=== PATIENT | male | born 1950 | race Caucasian/White ===

== ENCOUNTER → 2016-07-28 | Outpatient (CLI) | payer BC, OTHER ==
[~2016-07-28] MED LIST: ATOR-22 PO; KETO10TA PO; MONT1TAB3 PO; OXYC-57 PO; RIZA10TA18 PO; TADA5TAB11 PO
[2016-07-28 15:40] LABS: BASO % 0.3 %; BASO ABS # 0.02 K/uL (0-0.2); COMPLETE YES; EOS % 0.9 %; HEMATOCRIT 43.6 % (42-52); IG% 0.2 %; LYMPH % 21.6 %; LYMPH ABS # 1.24 K/uL (1.2-3.4); MEAN CELL VOLUME 91.6 fL (80-100); MEAN CORPUSCULAR HEMOGLOBIN 30.3 pg (25-34); MEAN PLATELET VOLUME 9.4 fL (7.4-10.4); MONO % 6.6 %; NEUT % 70.4 %; PLATELET COUNT 201 K/uL (130-400); RED BLOOD COUNT 4.76 M/uL (4.7-6.1); WHITE BLOOD COUNT 5.75 K/uL (4.8-10.8)
[2016-07-28 15:57] LABS: POTASSIUM 4.3 mmol/L (3.5-5.1)
== END | disposition home or self-care (01) ==
LOC: C.CPL 14:59
PROVIDERS: ATTEND Orthopaedic Surgery Sports Medicine
DX: M67.919 Unspecified disorder of synovium and tendon, unspecified shoulder (principal); Z01.810 Encounter for preprocedural cardiovascular examination; Z01.812 Encounter for preprocedural laboratory examination

== ENCOUNTER → 2016-08-03 | Day surgery (SDC) | payer BC, OTHER ==
[2016-07-29 10:56] VITALS: Ht 167.6 cm; Wt 77.3 kg
[~2016-08-03] VITALS: Ht 167.6 cm; Wt 77.3 kg
[~2016-08-03] MED LIST changes: +ATROPINE SULFATE 0.1 MG/ML 5ML SYR IV PRN; +BUPIVACAINE/EPINEPHRINE 0.5% MPF 1:200,000 30 ML VIAL ONE; +CEFAZOLIN 1000MG/55 ML D5W IV SCH; +CEFAZOLIN 2000 MG/60 ML D5W IV SCH; +CEFAZOLIN SOD 1 GM VIAL ONE; +CEFAZOLIN SOD 1000MG/55 ML D5W IV ONE; +DEXAMETHASONE SOD INJ 4 MG/ML VIAL ONE; +EpHEDrine SULFATE 50MG/5ML SYR ONE; +EpHEDrine SULFATE INJ 50 MG/ML AMP IV PRN; +FENTANYL CITRATE INJ 50 MCG/1 ML 2 ML VIAL IV PRN; +FENTANYL CITRATE INJ 50 MCG/1 ML 2 ML VIAL ONE; +KETOROLAC TROMETHAMINE 30 MG/ML VIAL ONE; +LACTATED RINGER'S 1000ML 1,000 ML IV SCH; +LIDOCAINE HCL 2% 2 ML VIAL (20MG/ML) ONE; +MIDAZOLAM HCL 1 MG/ML 2ML VIAL ONE; +ONDANSETRON INJ 2 MG/ML 2 ML VIAL ONE; +OXYCODONE/ACETAMINOPHEN 5-325 TAB PO PRN; +PROPOFOL IV EMULSION 10 MG/ML 20 ML VIAL IV ONE; -RIZA10TA18 PO; +SODIUM CHLORIDE 0.9% 1000ML 1,000 ML IV SCH
--- NOTE | 2016-08-03 08:15 | History & Physical Bridge - [place] ---
H&P Re-Evaluation Bridge Note: I have examined the patient, reviewed the History & Physical and in the interval since the performance of the History & Physical I have noted the following changes of clinical significance: No changes noted
--- NOTE | 2016-08-03 10:58 | [facility] Post Operative Brief Note ---
Immediate Operative Summary Operative Date Aug 03, 2016. Pre-Operative Diagnosis Right Distal Biceps Rupture Post-Operative Diagnosis Same Procedure(s) Performed Right Distal Biceps Repair Surgeon Dr. Stephen Speech Pathology Assistant Surgeon(s) Hector Monahan PA-C Estimated Blood Loss 20 ML Findings Right Distal Biceps Rupture Specimens None Anesthesia General Complication(s) None Disposition Recovery Room / PACU
--- NOTE | 2016-08-03 11:00 | Discharge Instructions-SurgCtr ---
Discharge Instructions Date of Service Aug 03, 2016. Visit Reason for Visit: Right Distal Tendon Biceps Brachii Tear Discharge Discharge Diagnosis / Problem: right distal bicep tendon rupture Discharge Goals Goal(s): Improve function, Therapeutic intervention Activity Recommendations Activity Limitations: per Instructions/Follow-up section Anesthesia . Post Anesthesia Instructions: If you have had General Anesthesia or IV Sedation: * Do not drive today. * Resume driving when surgeon permits. * Do not make important decisions or sign legal documents today. * Call surgeon for: 1. Temperature elevations greater than 101 degrees F. 2. Uncontrollable pain. 3. Excessive bleeding. 4. Persistent nausea and vomiting. 5. Medication intolerance (nausea, vomiting or rash). * For nausea and vomiting use only clear liquids such as: tea, soda, bouillon until nausea subsides, then gradually increase diet as tolerated. * If you have any concerns or questions, call your surgeon's office. If physician is unavailable and it is an emergency, call 911 or go to the nearest emergency room. . Instructions / Follow-Up Instructions / Follow-Up MEDICATIONS: * Resume previous medications unless instructed otherwise by your surgeon. * Always take pain medication on a full stomach or with food to avoid upset stomach. * Do not drink alcohol or drive while taking narcotics. * Ibuprofen or Tylenol may be taken if narcotic not needed. No ibuprofen while taking toradol SPECIAL CARE INSTRUCTIONS: __ None _x_ Keep extremity elevated and iced x 48 hours; apply ice 20-30 minutes 8-10 times/day. May remove at night. _x_ Sling __24 hrs/day __ Remove at night __ Shoulder Immobilizer __ 24 hrs/day __ Remove at night _x_ Dressing _x_ Maintain until seen in office, may shower with plastic over site __ Remove dressings in 24-48 hours and then may shower __ Cover incisions with band-aids after showering __ Do not remove steri-strips Call physician if chills or temperature rises above 102 degrees or pain unrelieved by prescribed pain medications at . follow up in 2 weeks . Diet Recommendations Home Diet: resume previous diet Procedures Procedures Performed: Right Distal Biceps Repair Pending Studies Studies pending at discharge: no Medical Emergencies . Who to Call and When: Medical Emergencies: If at any time you feel your situation is an emergency, please call 911 immediately. . Non-Emergent Contact Non-Emergency issues call your: Surgeon . . "Provider Documentation" section prepared by Sha Monahan. .
[2016-08-03 12:04] VITALS: TEMP 36.6
[2016-08-03 12:28] VITALS: BP 124/77; PULSE 81; O2SAT 95
--- NOTE | 2016-08-03 12:31 | Anesthesia Progress Nt - [facility] ---
Anesthesia Post Op Note Date & Time Aug 03, 2016 at 12:31 Vital Signs Pain Intensity: 4 Vital Signs Past 12 Hours Date Time Temp Pulse Resp B/P (MAP) Pulse Ox O2 Delivery O2 Flow Rate FiO2 08/03/16 12:28 81 16 124/77 (93) 95 Room Air 08/03/16 12:04 36.6 83 16 133/81 (98) 97 Room Air 08/03/16 11:42 142/85 08/03/16 11:39 89 10 96 08/03/16 11:39 87 10 08/03/16 11:37 146/84 08/03/16 11:35 36.1 89 16 146/84 96 Room Air 08/03/16 11:34 85 9 97 08/03/16 11:34 86 9 08/03/16 11:32 149/80 08/03/16 11:29 80 6 96 08/03/16 11:29 82 6 08/03/16 11:27 149/88 08/03/16 11:24 86 13 08/03/16 11:24 86 13 100 08/03/16 11:22 147/83 08/03/16 11:19 87 14 100 08/03/16 11:19 87 14 08/03/16 11:18 85 12 08/03/16 11:18 85 12 100 08/03/16 11:17 141/82 08/03/16 11:13 84 12 100 08/03/16 11:13 84 12 08/03/16 11:12 136/83 08/03/16 11:08 85 14 100 08/03/16 11:08 87 14 08/03/16 11:07 145/84 08/03/16 11:03 90 14 08/03/16 11:03 90 14 100 08/03/16 11:02 142/81 08/03/16 10:58 82 13 98 08/03/16 10:58 84 13 08/03/16 10:57 132/75 08/03/16 10:56 36.4 85 14 142/81 100 Mask 6 08/03/16 07:55 36.6 66 16 134/95 (108) 99 Room Air Notes Mental Status: alert / awake / arousable, participated in evaluation Pt Amnestic to Procedure: Yes Nausea / Vomiting: adequately controlled Pain: adequately controlled Airway Patency, RR, SpO2: stable & adequate BP & HR: stable & adequate Hydration State: stable & adequate Anesthetic Complications: no major complications apparent
--- NOTE | 2016-08-03 21:40 | OPERATIVE REPORT ---
DATE OF OPERATION: 08/03/2016 SURGEON: Dr. Pro Stephen. FINISHING TECHNICIAN: NUVIA Saini. PREOPERATIVE DIAGNOSIS: Right distal biceps rupture. POSTOPERATIVE DIAGNOSIS: Same. PROCEDURE PERFORMED: Right distal biceps repair. COMPLICATIONS: None. ESTIMATED BLOOD LOSS: 20 mL TOURNIQUET TIME: 38 minutes at 250 mmHg. ANESTHESIA: General. SPECIMENS: None. OPERATIVE INDICATIONS: The patient is a 66-year-old very active and healthy gentleman who injured his arm last week. He sustained eccentric contraction of his right biceps. He had an acute onset of pain and felt a snap in his arm. It was painful for a while and the pain went away. He was seen in clinic and diagnosed with an obvious distal biceps rupture. The patient elected to proceed with surgical treatment. He had no prodromal symptoms. OPERATIVE FINDINGS: Operative findings revealed complete distal biceps rupture. OPERATIVE PROCEDURE: The patient was taken to the operating room, identified and placed on the operating table in supine position. All contact areas were appropriately padded. IV antibiotics were provided by the anesthesia team. Right upper extremity tourniquet was placed on the upper arm. The right arm was then prepped and draped in the usual sterile fashion. The right arm was elevated and exsanguinated using an Esmarch and tourniquet was placed at 250 mmHg. A transverse incision was made in the antecubital fossa. Blunt dissection was carried out through the subcutaneous tissues. The fascia of the arm was opened up and a serosanguineous collection of fluid was immediately present. The biceps tendon was under direct visualization. I withdrew this from the wound. There was a little piece of bone in this, which was excised. I did freshen up the end of the biceps tendon and narrowed it so it would fit in the bone tunnel. I then tucked this back up into the arm for later repair. Great care was taken throughout the procedure to protect the lateral antebrachial cutaneous nerve. I used a Melanie clamp to track the path from the antecubital fossa to the posterior aspect of the forearm. The incision was marked. Attention was then turned to the posterior exposure. Keeping the arm in pronation at all times, a direct exposure to the biciptial tuberosity was then performed. This was thru a 4 cm incision. Sharp dissection was carried through the subcutaneous tissues down to the level of the fascia. The fascia of the forearm was then incised. I then split directly through the extensor muscle mass directly down to the bicipital tuberosity. I cleaned this of all soft tissues. Great care was taken throughout the procedure to protect the posterior interosseous nerve at all times. I then used a ozzie to create a hole in the bicipital tuberosity. I then irrigated this extensively. I then used a drill to create some holes from the lateral aspect of the radius into the intramedullary canal. I then placed some passing sutures to allow passage of the tendon. Attention was then drawn back to the biceps. The biceps tendon was then whipstitched with a #2 FiberWire suture. A #5 Ethibond suture was then placed in a [place] fashion through the tendon as well. These sutures were then passed through the antecubital fossa and around the radius to the posterior aspect of the arm into the posterior incision. I then used the passing sutures to pass these sutures through the intramedullary canal and out to the lateral aspect of the radius. We tucked the biceps tendon into the intramedullary canal. I then tied the sutures. This provided excellent anatomic repair. Attention was then drawn toward closing. Both wounds were irrigated extensively. I did inject locally with 30 mL of 0.5% Marcaine with epinephrine. The tourniquet was then let down for a tourniquet time of 38 minutes. Hemostasis was assured with use of electrocautery. There was a little bit more bleeding initially from the posterior wound, but we just packed this and proceeded with closure of the anterior wound. The anterior wound was then closed with 2-0 Dexon suture in buried interrupted fashion followed by 3-0 Prolene suture in a subcuticular fashion. The posterior wound was then opened back up. Hemostasis was assured with use of electrocautery. We irrigated the wound extensively to make sure all bone dust was out. The fascia was then closed with 2-0 Dexon suture in running fashion. The subcutaneous tissues were then closed with 2-0 Dexon suture in a buried interrupted fashion. Skin was closed with 3-0 Prolene suture in a subcuticular fashion. Both wounds were then cleaned and dried. Steri-Strips were applied. A sterile bandage composed of Xeroform, 4 x 4s, sterile cast padding and a well-padded posterior splint followed by a sling were applied. The patient was then brought out of general anesthesia and transferred to the recovery room in stable condition. The patient tolerated the procedure well with no complications. All needle and sponge counts were correct at the end of the operation. I attest to the content of the Intraoperative Record and any orders documented therein. Any exceptions are noted below. MTDD
== END | disposition home or self-care (01) ==
LOC: X.SURG 07:24
PROVIDERS: ATTEND Orthopaedic Surgery Sports Medicine
DX: S46.211A Strain of muscle, fascia and tendon of other parts of biceps, right arm, initial encounter (principal); E78.5 Hyperlipidemia, unspecified; X50.0XXA Overexertion from strenuous movement or load, initial encounter; Z87.442 Personal history of urinary calculi

== ENCOUNTER → 2016-11-16 | Outpatient (CLI) | payer BC, OTHER ==
[~2016-11-16] MED LIST changes: -ATROPINE SULFATE 0.1 MG/ML 5ML SYR IV PRN; -BUPIVACAINE/EPINEPHRINE 0.5% MPF 1:200,000 30 ML VIAL ONE; -CEFAZOLIN 1000MG/55 ML D5W IV SCH; -CEFAZOLIN 2000 MG/60 ML D5W IV SCH; -CEFAZOLIN SOD 1 GM VIAL ONE; -CEFAZOLIN SOD 1000MG/55 ML D5W IV ONE; -DEXAMETHASONE SOD INJ 4 MG/ML VIAL ONE; -EpHEDrine SULFATE 50MG/5ML SYR ONE; -EpHEDrine SULFATE INJ 50 MG/ML AMP IV PRN; -FENTANYL CITRATE INJ 50 MCG/1 ML 2 ML VIAL IV PRN; -FENTANYL CITRATE INJ 50 MCG/1 ML 2 ML VIAL ONE; -KETO10TA PO; -KETOROLAC TROMETHAMINE 30 MG/ML VIAL ONE; -LACTATED RINGER'S 1000ML 1,000 ML IV SCH; -LIDOCAINE HCL 2% 2 ML VIAL (20MG/ML) ONE; -MIDAZOLAM HCL 1 MG/ML 2ML VIAL ONE; -ONDANSETRON INJ 2 MG/ML 2 ML VIAL ONE; -OXYCODONE/ACETAMINOPHEN 5-325 TAB PO PRN; -PROPOFOL IV EMULSION 10 MG/ML 20 ML VIAL IV ONE; -SODIUM CHLORIDE 0.9% 1000ML 1,000 ML IV SCH
[2016-11-16 13:58] LABS: ALT/SGPT 28 U/L (12-78); BLOOD UREA NITROGEN 18 mg/dl (7-18); BUN/CREATININE RATIO 16.5 (10-20); CALCIUM 9.2 mg/dl (8.5-10.1); CARBON DIOXIDE 27 mmol/L (21-32); CHLORIDE 106 mmol/L (98-107); CHOLESTEROL 209 mg/dl (0-200); GLUCOSE 96 mg/dl (70-99); POTASSIUM 4.5 mmol/L (3.5-5.1); SODIUM 139 mmol/L (136-145); TRIGLYCERIDES 56 mg/dl (0-150); VERY LOW DENSITY LIPOPROT CALC 11 mg/dl
[2016-11-16 14:02] LABS: ALB/GLOB RATIO 1.5 (0.9-2); ALKALINE PHOSPHATASE 52 U/L (45-117); AST/SGOT 21 U/L (15-37); CHOLESTEROL/HDL RATIO 3.1; HDL CHOLESTEROL 67 mg/dl; LDL CHOLESTEROL CALCULATED 131 mg/dl
--- NOTE | 2016-11-30 08:38 | CODING QUERY MEDICAL NECESSITY ---
CQSUPPORTING DIAGNOSIS NEEDED A supporting diagnosis is required for the test/procedure performed on this patient in order for us to be reimbursed by the patient's insurance. Please provide a supporting diagnosis for the following test/procedure listed below next to the test name along with your signature. *If there is no additional diagnosis for this patient that would support the following test/procedure please document that below next to the test/procedure. Test(s)/Procedure(s) that require a supporting diagnosis: DOS 11/16/16 PROSTATE SPECIFIC TEST Provider Signature: Date: Thank you Diann Gamboa [employer] Once completed, please kindly fax back to [phone] For questions please call [phone]
== END | disposition home or self-care (01) ==
LOC: C.LABBC 09:12
PROVIDERS: ATTEND Internal Medicine
DX: Z00.00 Encounter for general adult medical examination without abnormal findings (principal)

== ENCOUNTER → 2017-01-25 | Day surgery (SDC) | payer BC, OTHER ==
[2017-01-17 07:36] VITALS: Ht 167.6 cm; Wt 77.3 kg
[~2017-01-25] VITALS: Ht 167.6 cm; Wt 77.3 kg
[~2017-01-25] MED LIST changes: +500ML BSS 0.3ML EPI 1:1000PF IRRIG ONE; +ACETAMINOPHEN 325 MG TAB PO PRN; +AMVISC PLUS 0.8ML SYRINGE INT OCU ONE; +ATROPINE SULFATE 0.1 MG/ML 5ML SYR IV PRN; +BSS FLUSH ONE; +ENDOCOAT 0.85ML SYRINGE INT OCU ONE; +EpINEphrine INJ 1MG/ML AMP 1 MG/ML AMP ONE; +FENTANYL CITRATE INJ 50 MCG/1 ML 2 ML VIAL ONE; +LACTATED RINGER'S 1000ML 500 ML IV SCH; +LIDOCAINE 4% OP SOLN DROP CHARGE ONE; +LIDOCAINE 4% OP SOLN DROP CHARGE OPL SCH; +LIDOCAINE HCL 1% MPF 2 ML VIAL ONE; +MIDAZOLAM HCL 1 MG/ML 2ML VIAL ONE; +MIX: 4ML BSS 1ML EPI 1:1000 PF TOP ONE; +MOXIFLOXACIN OPH SOLN PER DROP CHARGE ONE; -OXYC-57 PO; +POVIDONE-IODINE OP SOLN 30 ML BTL ONE; +PROPARACAINE 0.5% OP SOLN PER DROP CHARGE OPL SCH; +TOBRAMYCIN/DEXAMETHASONE OPH OINT PER APPLN CHARGE ONE
[2017-01-25] MEDS: PHENYLEPHRINE HCL 2.5% OP SOLN PER DROP CHARGE OPL SCH ×3 (10:50→11:00)
[2017-01-25] MEDS: TROPICAMIDE 1% OP SOLN PER DROP CHARGE OPL SCH ×3 (10:51→11:01)
[2017-01-25] MEDS: CYCLOPENTOLATE HCL 1% OP SOLN PER DROP CHARGE OPL SCH ×3 (10:52→11:02)
[2017-01-25] MEDS: MOXIFLOXACIN OPH SOLN PER DROP CHARGE OPL SCH ×3 (10:53→11:03)
--- NOTE | 2017-01-25 12:14 | [facility] Post Operative Brief Note ---
Immediate Operative Summary Operative Date Jan 25, 2017. Pre-Operative Diagnosis Left eye cataract Post-Operative Diagnosis Same as preop Procedure(s) Performed Left Cataract Phacoemulsification With Intraocular Lens Implant; Symfony Lens Surgeon Dr. Hernández Miner Pick Surgeon(s) None Estimated Blood Loss 0 mL Findings left cataract Specimens None Complication(s) None Disposition
[2017-01-25 12:16] VITALS: TEMP 36.8
--- NOTE | 2017-01-25 12:16 | [facility] Operative Report ---
Operative Report Date of Service Jan 25, 2017. Operative Report DATE OF OPERATION: 01/25/17 PREOPERATIVE DIAGNOSIS: Senile nuclear cataract and astigmatism, left eye POSTOPERATIVE DIAGNOSIS: Senile nuclear cataract and astigmatism, left eye PROCEDURE PERFORMED: Phacoemulsification with toric intraocular lens implantation, left eye SURGEON: Dr. Oscar Hernández ANESTHESIA: Topical with 1% intracameral lidocaine and monitored anesthesia care COMPLICATIONS: None DESCRIPTION OF PROCEDURE: After positively identifying the patient both verbally and by wristband in the preoperative area, the left eye was marked as the operative eye. Using a Robomarker, the 78 degree axis was marked after placing a drop of proparacaine. The patient was then brought back to the operating room by the anesthesia and nursing staff where they were given a drop of tetracaine and betadine into the operative eye. They were then sterilely prepped and draped in the standard fashion typical for ophthalmic surgery. Steri-strips were placed along the upper eyelids to keep the lashes back, and a lid speculum was placed into the operative eye. At this point, a documented time out was performed with members of the ophthalmology, nursing, and anesthesia staffs all agreeing upon the correct patient, correct location for surgery, correct procedure, and correct type and power of intraocular lens to be implanted. The microscope was then swung into position. Then, a paracentesis wound was made using a sideport blade. Then, in sequence, 1% preservative-free lidocaine followed by Endocoat viscoelastic was injected into the anterior chamber. Next , the main incision was made with a keratome blade in triplanar fashion. A sharp cystotome was introduced into the eye and used to create a tear in the anterior capsule, which was directed into a continuous curvilinear capsulorrhexis using Utrata forceps. Hydrodissection was then performed with BSS on a flat-tip cannula. Next, the phacoemulsification handpiece was introduced into the eye and used to remove the nucleus in a [id number] fashion. This was done without complication and then the irrigation-aspiration handpiece was introduced into the eye and used to remove all remaining cortical and epinuclear material. Amvisc was then injected into the anterior chamber as well as into the capsular bag and using the lens injector system, a FSA794 19.5 D lens, serial number [id number], and expiration date 06/2021 was injected into the capsular bag and rotated into the correct position to correctly line up with the toric marking. Next, the irrigation-aspiration handpiece was used to remove all remaining Amvisc. BSS was used to hydrate the main wound, and then BSS was injected into the paracentesis site to reach physiologic pressure and then the main wound was checked and found to be watertight. The patient was given drops of Vigamox and tobradex ointment into the operative eye, and then the surrounding area was cleaned and dried. A clear plastic shield was placed over the eye and the patient was then sat up and taken from the operating room by the anesthesia staff having tolerated the procedure well and suffering no complications. DISPOSITION: The patient was returned to the recovery room in stable condition. I attest to the content of the Intraoperative Record and any orders documented therein. Any exceptions are noted below.
--- NOTE | 2017-01-25 12:17 | Discharge Instructions-SurgCtr ---
Discharge Instructions Date of Service Jan 25, 2017. Visit Reason for Visit: Cataract Left Eye Discharge Discharge Diagnosis / Problem: left cataract Discharge Goals Goal(s): Decrease discomfort, Improve function Activity Recommendations Activity Limitations: as noted below Anesthesia . Post Anesthesia Instructions: If you have had General Anesthesia or IV Sedation: * Do not drive today. * Resume driving when surgeon permits. * Do not make important decisions or sign legal documents today. * Call surgeon for: 1. Temperature elevations greater than 101 degrees F. 2. Uncontrollable pain. 3. Excessive bleeding. 4. Persistent nausea and vomiting. 5. Medication intolerance (nausea, vomiting or rash). * For nausea and vomiting use only clear liquids such as: tea, soda, bouillon until nausea subsides, then gradually increase diet as tolerated. * If you have any concerns or questions, call your surgeon's office. If physician is unavailable and it is an emergency, call 911 or go to the nearest emergency room. . Instructions / Follow-Up Instructions / Follow-Up ACTIVITY RECOMMENDATIONS: * Light activities. * You may walk outside, read, watch television. * You may notice redness on the white part of the eye and some blurry vision - this is normal. MEDICATIONS: Resume previous medications unless instructed otherwise by your surgeon. Start all eye drops at 2 pm today: * Eye drops (today): Prednisone - one drop in operative eye every 2 hours while awake Ofloxacin - one drop in operative eye every 2 hours while awake Bromfenac - one drop in operative eye daily SPECIAL CARE INSTRUCTIONS: * Tape plastic shield over eye to sleep at night. Call your doctor at with any concerns or problems. FOLLOW UP VISIT: Follow-up with Dr Hernández at [facility] as scheduled. Diet Recommendations Home Diet: no limitations Procedures Procedures Performed: Left Cataract Phacoemulsification With Intraocular Lens Implant; Symfony Lens Pending Studies Studies pending at discharge: no Medical Emergencies . Who to Call and When: Medical Emergencies: If at any time you feel your situation is an emergency, please call 911 immediately. . Non-Emergent Contact Non-Emergency issues call your: Surgeon . . "Provider Documentation" section prepared by Oscar Hernández. .
[2017-01-25 12:55] VITALS: BP 128/85; PULSE 60; O2SAT 98
--- NOTE | 2017-01-25 12:55 | Anesthesia Progress Nt - [facility] ---
Anesthesia Post Op Note Date & Time Jan 25, 2017 at 12:55 Vital Signs Pain Intensity: 0 Vital Signs Past 12 Hours Date Time Temp Pulse Resp B/P (MAP) Pulse Ox O2 Delivery O2 Flow Rate FiO2 01/25/17 12:16 36.8 67 16 145/82 (103) 98 Room Air 01/25/17 10:44 36.4 62 18 155/63 (93) 97 Room Air Notes Mental Status: alert / awake / arousable, participated in evaluation Pt Amnestic to Procedure: Yes Nausea / Vomiting: adequately controlled Pain: adequately controlled Airway Patency, RR, SpO2: stable & adequate BP & HR: stable & adequate Hydration State: stable & adequate Anesthetic Complications: no major complications apparent
== END | disposition home or self-care (01) ==
LOC: X.SURG 10:25
PROVIDERS: ATTEND Ophthalmology
DX: H25.12 Age-related nuclear cataract, left eye (principal); H52.202 Unspecified astigmatism, left eye; N42.9 Disorder of prostate, unspecified; Z79.899 Other long term (current) drug therapy